=== PATIENT | female | born 1950 | race Caucasian/White ===

== ENCOUNTER 2021-04-19 10:58 | Outpatient (CLI) | payer MEDICARE | END 2021-04-19 10:59 | disposition home or self-care (01) | LOC: CSHMAMMO 10:58 | PROVIDERS: ATTEND Nurse Practitioner Adult Health | DX: Z12.31 Encounter for screening mammogram for malignant neoplasm of breast (principal) | CPT/HCPCS: 77063; 77067 ==

== ENCOUNTER 2022-05-03 09:13 | Outpatient (CLI) | payer MEDICARE | END 2022-05-03 09:14 | disposition home or self-care (01) | LOC: CSHMAMMO 09:13 | PROVIDERS: ATTEND Nurse Practitioner Adult Health | DX: Z12.31 Encounter for screening mammogram for malignant neoplasm of breast (principal) | CPT/HCPCS: 77063; 77067 ==

== ENCOUNTER 2024-04-25 08:40 | Outpatient (CLI) | payer MEDICARE | END 2024-04-25 08:41 | disposition home or self-care (01) | LOC: CSHULT 08:40 | PROVIDERS: ATTEND Internal Medicine | DX: R19.01 Right upper quadrant abdominal swelling, mass and lump (principal) | CPT/HCPCS: 76705 ==